=== PATIENT | male | born 1995 | race Caucasian/White ===

== ENCOUNTER 2024-05-27 12:15 | Emergency (ER) | payer OTHER ==
[~2024-05-27] VITALS: Ht 175.3 cm; Wt 113.4 kg
[2024-05-27] MEDS ORDERED: LamoTRIgine 100 MG TABLET PO SCH ×2 (12:45→15:15)
[2024-05-27 12:55] LABS: BASOPHILS % (AUTO) 0.6 % (0.0-2.0); EOSINOPHILS # (AUTO) 0.1 K/uL (0.0-0.4); EOSINOPHILS % (AUTO) 1.4 % (0.0-4.0); HEMATOCRIT 44.8 % (36-54); HEMOGLOBIN 14.9 g/dL (14.0-18.0); LYMPHOCYTES # (AUTO) 1.4 K/uL (1.0-5.5); LYMPHOCYTES % (AUTO) 19.9 % (20.5-51.5); MEAN CORPUSCULAR HEMOGLOBIN 32 pg (27-31); MEAN CORPUSCULAR HGB CONC 33 % (32-36); MEAN CORPUSCULAR VOLUME 95 fL (79.0-98.0); MONOCYTES # (AUTO) 0.4 K/uL (0.0-1.0); MONOCYTES % (AUTO) 6.2 % (1.7-9.3); NEUTROPHILS # (AUTO) 5.1 K/uL (1.8-7.7); NEUTROPHILS % (AUTO) 71.9 % (40.0-70.0); PLATELET COUNT (AUTO) 296 K/uL (130-430); RED BLOOD CELL COUNT(AUTO) 4.72 MIL/uL (4.2-6.2); RED CELL DISTRIBUTION WIDTH 12.9 % (9.0-15.0); WHITE BLOOD COUNT (AUTO) 7.2 K/uL (4.8-10.8)
[2024-05-27 13:06] VITALS: BP_SYST 150; PULSE 98; RESP 16; TEMP 97.8; O2SAT 97
[2024-05-27] MEDS: levETIRAcetam 500 MG TABLET PO ONE (13:13)
[2024-05-27] MEDS: LamoTRIgine 100 MG TABLET PO ONE ×2 (13:14→16:04)
[2024-05-27 13:19] LABS: CALCIUM 9.3 mg/dL (8.4-11.0); CREATININE 1.04 mg/dL (0.55-1.30); POTASSIUM 4.2 mmol/L (3.5-5.1)
[2024-05-27] MEDS ORDERED: LEVE750T4 PO (15:15)
[2024-05-27] MEDS ORDERED: DIVA500T4 PO (15:15)
[2024-05-27] MEDS ORDERED: LAM100 PO (15:15)
[2024-05-27] MEDS: DIVALPROEX SODIUM 250 MG TABLET(DEPAKOTE) PO ONE (16:01)
[2024-05-27 16:15] VITALS: BP_SYST 142; PULSE 90; RESP 16; TEMP 98.4; O2SAT 96
== END 2024-05-27 16:17 | disposition home or self-care (01) ==
LOC: SED 12:15
DX: R56.9 Unspecified convulsions (principal); R03.0 Elevated blood-pressure reading, without diagnosis of hypertension
CPT/HCPCS: 36415; 80048; 80164; 83605; 85025; 99284